=== PATIENT | male | born 1995 | race Caucasian/White ===

== ENCOUNTER 2021-06-07 00:55 | Emergency (ER) | payer OTHER ==
[~2021-06-07] VITALS: Wt 64.0 kg
== END 2021-06-07 08:47 | disposition home or self-care (01) ==
LOC: ED 00:55
DX: K94.23 Gastrostomy malfunction (principal); Z88.1 Allergy status to other antibiotic agents; Z91.013 Allergy to seafood

== ENCOUNTER 2021-06-12 19:06 | Inpatient (IN) | payer OTHER ==
[~2021-06-12] VITALS: Ht 126.9 cm; Wt 59.1 kg
[2021-06-12 19:10] VITALS: BP 103/52
[2021-06-12 20:44] LABS: BASO # 0.1 10*3/uL (0.0-0.1); BASO % 1.8 % (0.0-1.0); EOS # 0.1 10*3/uL (0.0-0.4); EOS % 1.4 % (1.0-4.0); HEMATOCRIT 34.8 % (42.0-52.0); LYMPH # 1.9 10*3/uL (1.3-4.4); LYMPH % 23.3 % (27.0-41.0); MEAN CELL VOLUME 101.8 fl (80.0-94.0); MEAN CORPUSCULAR HGB 32.7 pg (27.0-31.0); MEAN CORPUSCULAR HGB CONC 32.2 g/dl (33.0-37.0); MEAN PLATELET VOLUME 10.8 fl (9.6-12.3); MONO % 12.4 % (3.0-9.0); NEUT # 4.7 10*3/uL (2.3-7.9); NEUT % 58.3 % (47.0-73.0); NUCLEATED RED BLOOD CELL 0.3 % (0.0-0.0); PLATELET COUNT AUTOMATED 276 10*3/uL (130-400); RED BLOOD COUNT 3.42 10*6/uL (4.50-5.90); RED CELL DISTRI WIDTH 15.5 % (0-14.5)
[2021-06-12 20:44] LABS: ALBUMIN 3.2 gm/dl (3.1-4.5); ALKALINE PHOSPHATASE 155 U/L (45-117); BUN 18 mg/dl (7-24); CHLORIDE 109 mmol/L (98-107); CREATININE 0.81 mg/dL (0.70-1.30); POTASSIUM 3.9 mmol/L (3.5-5.1); SGOT/AST 13 IU/L (3-35); SGPT/ALT 19 U/L (12-78); SODIUM 139 mmol/L (136-145); TOTAL PROTEIN 7.7 gm/dL (6.4-8.2)
[2021-06-13] VITALS (10 sets, daily range): BP systolic 91–120; BP diastolic 47–71
[2021-06-13] MEDS ORDERED: VIMPAT100 MG PEG (01:54)
[2021-06-13] MEDS ORDERED: PHENOBARBITAL32.4 M2 PEG (01:54)
[2021-06-13] MEDS ORDERED: CLOBAZAM2.5 MG/1 M PEG (01:54)
[2021-06-13] MEDS ORDERED: VIMPAT50 MG PEG ×2 (01:55→16:22)
[2021-06-13] MEDS ORDERED: ZONISAMIDE100 MG PEG (01:55)
[2021-06-13] MEDS ORDERED: ZONISAMIDE PEG (01:56)
[2021-06-13 07:07] LABS: BASO # 0.1 10*3/uL (0.0-0.1); BASO % 2.6 % (0.0-1.0); EOS # 0.1 10*3/uL (0.0-0.4); EOS % 2.6 % (1.0-4.0); HEMATOCRIT 36.6 % (42.0-52.0); LYMPH # 1.6 10*3/uL (1.3-4.4); LYMPH % 37.1 % (27.0-41.0); MEAN CELL VOLUME 102.5 fl (80.0-94.0); MEAN CORPUSCULAR HGB 33.1 pg (27.0-31.0); MEAN CORPUSCULAR HGB CONC 32.2 g/dl (33.0-37.0); MEAN PLATELET VOLUME 10.4 fl (9.6-12.3); MONO # 0.6 10*3/uL (0.1-1.0); MONO % 15.2 % (3.0-9.0); NEUT # 1.8 10*3/uL (2.3-7.9); NEUT % 42.3 % (47.0-73.0); PLATELET COUNT AUTOMATED 285 10*3/uL (130-400); RED BLOOD COUNT 3.57 10*6/uL (4.50-5.90); RED CELL DISTRI WIDTH 15.3 % (0-14.5); WHITE BLOOD COUNT 4.2 10*3/uL (4.8-10.8)
[2021-06-13 07:17] LABS: ACT PARTIAL THROMBO TIME 30.5 SECONDS (20.0-32.1); INTERNATIONAL NORM RATIO 1.1 (2.0-3.5)
[2021-06-13 07:24] LABS: ALBUMIN 3.3 gm/dl (3.1-4.5); BUN 17 mg/dl (7-24); CHLORIDE 110 mmol/L (98-107); POTASSIUM 3.9 mmol/L (3.5-5.1); SODIUM 139 mmol/L (136-145)
[2021-06-13 07:33] LABS: ALKALINE PHOSPHATASE 167 U/L (45-117); FREE T4 1.02 ng/dl (0.76-1.46); SGOT/AST 16 IU/L (3-35); SGPT/ALT 21 U/L (12-78); TOTAL PROTEIN 8.6 gm/dL (6.4-8.2)
[2021-06-13] MEDS ORDERED: ACETAMINOPHEN325 M2 PEG (15:42)
[2021-06-13] MEDS ORDERED: ANUSOL HC30 GM PO (15:43)
[2021-06-13] MEDS ORDERED: DULCOLAX10 M1 R (15:45)
[2021-06-13] MEDS ORDERED: CALCIUM500 M1 PEG (15:46)
[2021-06-13] MEDS ORDERED: CLOBAZAM10 MG PO ×2 (15:49→15:50)
[2021-06-13] MEDS ORDERED: FLUTICASONE P15.8 ML NAS (15:53)
[2021-06-13] MEDS ORDERED: KEPPRA500 MG PEG (15:54)
[2021-06-13] MEDS ORDERED: KLOR-CON M2020 ME1 PO (15:55)
[2021-06-13] MEDS ORDERED: LAMICTAL100 MG PEG (16:04)
[2021-06-13] MEDS ORDERED: LAMICTAL200 MG PEG (16:04)
[2021-06-13] MEDS ORDERED: CLARITIN10 MG PEG (16:05)
[2021-06-13] MEDS ORDERED: PEPCID20 MG PO (16:06)
[2021-06-13] MEDS ORDERED: PERIDEX118 ML MM (16:07)
[2021-06-13] MEDS ORDERED: PHENOBARBITAL64.8 MG PEG (16:18)
[2021-06-13] MEDS ORDERED: Synthroid,Lev200 MCG PEG (16:19)
[2021-06-13] MEDS ORDERED: Synthroid,Levo50 MCG PEG (16:20)
[2021-06-13] MEDS ORDERED: VIMPAT200 MG PO (16:22)
[2021-06-13 17:13] LABS: BILIRUBIN Negative (Negative); BLOOD Negative (Negative); CLARITY Clear (Clear); COLOR Yellow (Yellow); GLUCOSE Negative (Negative); KETONE Negative (Negative); LEUKO ESTERASE Negative (Negative); NITRITE Negative (Negative); PH 6.5 (4.5-8.0); SPECIFIC GRAVITY 1.015 (1.001-1.030); UROBILINOGEN 0.2 E.U./dl (0.0-1.0)
[2021-06-13 17:38] LABS: BACTERIA TRACE; EPITHELIAL CELLS 0-2
[2021-06-14] VITALS: BP 105/68
[2021-06-14 04:00] VITALS: BP 101/68
[2021-06-14 06:26] LABS: CHLORIDE 112 mmol/L (98-107); POTASSIUM 3.5 mmol/L (3.5-5.1); SODIUM 140 mmol/L (136-145)
[2021-06-14 06:30] LABS: ALKALINE PHOSPHATASE 165 U/L (45-117); BUN 15 mg/dl (7-24); SGOT/AST 19 IU/L (3-35); SGPT/ALT 20 U/L (12-78); TOTAL PROTEIN 8.1 gm/dL (6.4-8.2)
[2021-06-14 06:56] LABS: BASO # 0.1 10*3/uL (0.0-0.1); BASO % 2.6 % (0.0-1.0); EOS # 0.1 10*3/uL (0.0-0.4); EOS % 1.3 % (1.0-4.0); HEMATOCRIT 37.1 % (42.0-52.0); LYMPH # 1.6 10*3/uL (1.3-4.4); LYMPH % 34.5 % (27.0-41.0); MEAN CORPUSCULAR HGB 33.4 pg (27.0-31.0); MEAN CORPUSCULAR HGB CONC 31.3 g/dl (33.0-37.0); MONO # 0.9 10*3/uL (0.1-1.0); MONO % 19.3 % (3.0-9.0); NEUT # 1.9 10*3/uL (2.3-7.9); NEUT % 42.1 % (47.0-73.0); PLATELET COUNT AUTOMATED 252 10*3/uL (130-400); RED BLOOD COUNT 3.47 10*6/uL (4.50-5.90); RED CELL DISTRI WIDTH 15.5 % (0-14.5); WHITE BLOOD COUNT 4.6 10*3/uL (4.8-10.8)
[2021-06-14 07:10] LABS: MEAN CELL VOLUME 106.9 fl (80.0-94.0)
[2021-06-14 08:00] VITALS: BP 111/67
[2021-06-14 12:00] VITALS: BP 130/64
[2021-06-14] MEDS ORDERED: CLOBAZAM2.5 MG/1 M PEG (12:45)
[2021-06-14] MEDS ORDERED: CLOBAZAM10 MG PO ×2 (12:45)
[2021-06-14] MEDS ORDERED: CIPRO250 MG PEG (15:14)
[2021-06-14 16:00] VITALS: BP 101/64
[2021-06-14 20:00] VITALS: BP 91/64
[2021-06-15] VITALS: BP 93/62
[2021-06-15 04:00] VITALS: BP 98/64
[2021-06-15 08:00] VITALS: BP 95/70
== END 2021-06-15 11:14 | DRG 393 ==
LOC: ED 19:06 → EDHOLD 20:54 → ICCU 20:54
PROVIDERS: Family Medicine; Hospitalist; Internal Medicine; ADMIT Internal Medicine; ATTEND Internal Medicine
PROC: 5A1945Z Respiratory Ventilation, 24-96 Consecutive Hours (ICD-10-PCS; 2021-06-12)
PROC: 0DH63UZ Insertion of Feeding Device into Stomach, Percutaneous Approach (ICD-10-PCS; principal; 2021-06-14)
DX: K94.23 Gastrostomy malfunction (principal); J96.91 Respiratory failure, unspecified with hypoxia; Z99.11 Dependence on respirator [ventilator] status; G40.812 Lennox-Gastaut syndrome, not intractable, without status epilepticus; G40.89 Other seizures; D53.9 Nutritional anemia, unspecified; E83.41 Hypermagnesemia; G47.33 Obstructive sleep apnea (adult) (pediatric); E03.9 Hypothyroidism, unspecified; R62.7 Adult failure to thrive; R13.10 Dysphagia, unspecified; Z88.1 Allergy status to other antibiotic agents; Y83.8 Other surgical procedures as the cause of abnormal reaction of the patient, or of later complication, without mention of misadventure at the time of the procedure; Y73.8 Miscellaneous gastroenterology and urology devices associated with adverse incidents, not elsewhere classified; Z91.013 Allergy to seafood; Q90.9 Down syndrome, unspecified; Z88.8 Allergy status to other drugs, medicaments and biological substances; Z79.899 Other long term (current) drug therapy; Z68.36 Body mass index [BMI] 36.0-36.9, adult

== ENCOUNTER 2021-09-26 23:06 | Inpatient (IN) | payer OTHER, MEDICAID ==
[~2021-09-26] VITALS: Ht 121.9 cm; Wt 65.0 kg
[~2021-09-26 23:06] MED LIST: ACETAMINOPHEN325 M2 PEG; ANUSOL HC30 GM R; CALCIUM500 M1 PEG; CIPRO250 MG PEG; CLARITIN10 MG PEG; CLOBAZAM10 MG PO; CLOBAZAM2.5 MG/1 M PEG; DULCOLAX10 M1 R; FLUTICASONE P15.8 ML NAS; KEPPRA500 MG PEG; KLOR-CON M2020 ME1 PO; LAMICTAL100 MG PEG; LAMICTAL200 MG PEG; PEPCID20 MG PO; PERIDEX118 ML MM; PHENOBARBITAL32.4 M2 PEG; PHENOBARBITAL64.8 MG PEG; Synthroid,Lev200 MCG PEG; Synthroid,Levo50 MCG PEG; VIMPAT100 MG PEG; VIMPAT200 MG PO; VIMPAT50 MG PEG; ZONISAMIDE PEG; ZONISAMIDE100 MG PEG
[2021-09-26 23:34] VITALS: BP 128/110
[2021-09-27] VITALS (8 sets, daily range): BP systolic 99–149; BP diastolic 52–101
[2021-09-27 00:47] LABS: BILIRUBIN Negative (Negative); BLOOD 1+ (Negative); CLARITY Turbid (Clear); COLOR Yellow (Yellow); GLUCOSE Negative (Negative); KETONE Trace (Negative); LEUKO ESTERASE 3+ (Negative); NITRITE Positive (Negative); SPECIFIC GRAVITY 1.025 (1.001-1.030)
[2021-09-27 01:11] LABS: BASO # 0.1 10*3/uL (0.0-0.1); BASO % 0.7 % (0.0-1.0); EOS % 0.1 % (1.0-4.0); HEMATOCRIT 45.2 % (42.0-52.0); LYMPH # 1.1 10*3/uL (1.3-4.4); LYMPH % 11.4 % (27.0-41.0); MEAN CELL VOLUME 99.6 fl (80.0-94.0); MEAN CORPUSCULAR HGB CONC 35.2 g/dl (33.0-37.0); MEAN PLATELET VOLUME 10.7 fl (9.6-12.3); MONO # 1.1 10*3/uL (0.1-1.0); NEUT # 7.7 10*3/uL (2.3-7.9); NEUT % 76.5 % (47.0-73.0); PLATELET COUNT AUTOMATED 250 10*3/uL (130-400); RED BLOOD COUNT 4.54 10*6/uL (4.50-5.90); RED CELL DISTRI WIDTH 13.9 % (0-14.5)
[2021-09-27 01:15] LABS: BACTERIA 4+; RBC 16-20 rbc/hpf (0-2); WBC 31-40 wbc/hpf (0-5)
[2021-09-27 01:36] LABS: ALKALINE PHOSPHATASE 161 U/L (45-117); BUN 24 mg/dl (7-24); CHLORIDE 108 mmol/L (98-107); CREATININE 0.81 mg/dL (0.70-1.30); POTASSIUM 3.7 mmol/L (3.5-5.1); SGOT/AST 23 IU/L (3-35); SGPT/ALT 70 U/L (12-78); SODIUM 135 mmol/L (136-145); TOTAL PROTEIN 8.5 gm/dL (6.4-8.2)
[2021-09-27] MEDS ORDERED: ATIVAN ORAL C2 MG/ML IM (04:55)
[2021-09-27] MEDS ORDERED: LORAZEPAM2 MG PEG (04:56)
[2021-09-27] MEDS ORDERED: SENNA8.6 MG PEG (05:04)
[2021-09-27] MEDS ORDERED: ZOFRAN4 MG PEG (05:05)
[2021-09-27] MEDS ORDERED: MIRALAX POWDER17 G1 PEG (05:06)
[2021-09-27] MEDS ORDERED: MILK OF MA400 MG/52 PO (05:08)
[2021-09-27] MEDS ORDERED: Ipratropium Brom3 ML INH (05:09)
[2021-09-27] MEDS ORDERED: FLEET ENEMA EX230 M1 R (05:10)
[2021-09-27] MEDS ORDERED: VITAMIN D350 MC2 GT (07:09)
[2021-09-28] VITALS (14 sets, daily range): BP systolic 92–98; BP diastolic 49–63
[2021-09-28 06:25] LABS: BASO % 0.7 % (0.0-1.0); EOS % 0.2 % (1.0-4.0); HEMATOCRIT 37.2 % (42.0-52.0); LYMPH # 0.9 10*3/uL (1.3-4.4); LYMPH % 16.7 % (27.0-41.0); MEAN CELL VOLUME 100.3 fl (80.0-94.0); MEAN CORPUSCULAR HGB CONC 33.9 g/dl (33.0-37.0); MEAN PLATELET VOLUME 10.6 fl (9.6-12.3); MONO % 17.4 % (3.0-9.0); NEUT # 3.6 10*3/uL (2.3-7.9); NEUT % 64.8 % (47.0-73.0); PLATELET COUNT AUTOMATED 205 10*3/uL (130-400); RED BLOOD COUNT 3.71 10*6/uL (4.50-5.90); WHITE BLOOD COUNT 5.6 10*3/uL (4.8-10.8)
[2021-09-28 06:47] LABS: ALKALINE PHOSPHATASE 123 U/L (45-117); BUN 20 mg/dl (7-24); CHLORIDE 111 mmol/L (98-107); CREATININE 0.72 mg/dL (0.70-1.30); POTASSIUM 3.4 mmol/L (3.5-5.1); SGOT/AST 17 IU/L (3-35); SGPT/ALT 52 U/L (12-78); SODIUM 139 mmol/L (136-145)
[2021-09-29] VITALS (96 sets, daily range): BP systolic 84–117; BP diastolic 39–73
[2021-09-29 05:38] LABS: ALKALINE PHOSPHATASE 120 U/L (45-117); BUN 16 mg/dl (7-24); CHLORIDE 113 mmol/L (98-107); CREATININE 0.81 mg/dL (0.70-1.30); POTASSIUM 4.1 mmol/L (3.5-5.1); SGOT/AST 13 IU/L (3-35); SGPT/ALT 45 U/L (12-78); SODIUM 141 mmol/L (136-145); TOTAL PROTEIN 6.9 gm/dL (6.4-8.2)
[2021-09-29 06:29] LABS: BASO # 0.1 10*3/uL (0.0-0.1); BASO % 1.2 % (0.0-1.0); EOS # 0.1 10*3/uL (0.0-0.4); EOS % 1.1 % (1.0-4.0); LYMPH # 1.7 10*3/uL (1.3-4.4); LYMPH % 25.4 % (27.0-41.0); MEAN CELL VOLUME 101.1 fl (80.0-94.0); MEAN CORPUSCULAR HGB 35.1 pg (27.0-31.0); MEAN CORPUSCULAR HGB CONC 34.7 g/dl (33.0-37.0); MEAN PLATELET VOLUME 11.3 fl (9.6-12.3); MONO # 1.1 10*3/uL (0.1-1.0); MONO % 16.2 % (3.0-9.0); NEUT # 3.7 10*3/uL (2.3-7.9); NEUT % 55.9 % (47.0-73.0); PLATELET COUNT AUTOMATED 232 10*3/uL (130-400); RED BLOOD COUNT 3.56 10*6/uL (4.50-5.90); RED CELL DISTRI WIDTH 14.5 % (0-14.5); WHITE BLOOD COUNT 6.6 10*3/uL (4.8-10.8)
[2021-09-30] VITALS (96 sets, daily range): BP systolic 85–125; BP diastolic 42–71
[2021-09-30 04:47] LABS: BASO % 0.8 % (0.0-1.0); EOS # 0.1 10*3/uL (0.0-0.4); EOS % 1.5 % (1.0-4.0); HEMATOCRIT 36.9 % (42.0-52.0); LYMPH # 1.2 10*3/uL (1.3-4.4); MEAN CELL VOLUME 101.9 fl (80.0-94.0); MEAN CORPUSCULAR HGB 34.5 pg (27.0-31.0); MEAN CORPUSCULAR HGB CONC 33.9 g/dl (33.0-37.0); MEAN PLATELET VOLUME 11.5 fl (9.6-12.3); MONO # 0.9 10*3/uL (0.1-1.0); MONO % 17.7 % (3.0-9.0); NEUT % 56.8 % (47.0-73.0); PLATELET COUNT AUTOMATED 242 10*3/uL (130-400); RED BLOOD COUNT 3.62 10*6/uL (4.50-5.90); RED CELL DISTRI WIDTH 14.2 % (0-14.5); WHITE BLOOD COUNT 5.2 10*3/uL (4.8-10.8)
[2021-09-30 07:26] LABS: BUN 8 mg/dl (7-24); CHLORIDE 111 mmol/L (98-107); CREATININE 0.55 mg/dL (0.70-1.30); POTASSIUM 3.5 mmol/L (3.5-5.1); SODIUM 141 mmol/L (136-145)
[2021-10-01] VITALS (86 sets, daily range): BP systolic 83–132; BP diastolic 42–75
[2021-10-01 04:27] LABS: BUN 5 mg/dl (7-24); CHLORIDE 112 mmol/L (98-107); CREATININE 0.52 mg/dL (0.70-1.30); POTASSIUM 3.7 mmol/L (3.5-5.1); SODIUM 144 mmol/L (136-145)
== END 2021-10-01 23:00 | disposition short-term general hospital (02) | DRG 870 ==
LOC: ED 23:06 → ICCU 09-27 04:19 → EDHOLD 09-27 04:19 → ICCU 09-27 04:49
PROVIDERS: Emergency Medicine; Family Medicine; Internal Medicine; Student in an Organized Health Care Education/Training Program; ADMIT Internal Medicine; ATTEND Internal Medicine
PROC: 5A1955Z Respiratory Ventilation, Greater than 96 Consecutive Hours (ICD-10-PCS; principal; 2021-09-27)
PROC: 02HV33Z Insertion of Infusion Device into Superior Vena Cava, Percutaneous Approach (ICD-10-PCS; 2021-09-27)
PROC: B548ZZA Ultrasonography of Superior Vena Cava, Guidance (ICD-10-PCS; 2021-09-27)
DX: A41.9 Sepsis, unspecified organism (principal); J18.9 Pneumonia, unspecified organism; E87.2 Acidosis; N39.0 Urinary tract infection, site not specified; J96.10 Chronic respiratory failure, unspecified whether with hypoxia or hypercapnia; G91.9 Hydrocephalus, unspecified; E87.8 Other disorders of electrolyte and fluid balance, not elsewhere classified; R73.9 Hyperglycemia, unspecified; R31.9 Hematuria, unspecified; G40.909 Epilepsy, unspecified, not intractable, without status epilepticus; B96.5 Pseudomonas (aeruginosa) (mallei) (pseudomallei) as the cause of diseases classified elsewhere; B95.2 Enterococcus as the cause of diseases classified elsewhere; Z93.0 Tracheostomy status; Z88.1 Allergy status to other antibiotic agents; Z91.013 Allergy to seafood; Z88.0 Allergy status to penicillin